=== PATIENT | male | born 1980 ===

== ENCOUNTER 2018-01-12 07:27 | Emergency (ER) | payer MEDICAID, OTHER ==
[2018-01-12 07:54] VITALS: BMI 29.6
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
--- NOTE | 2018-01-12 09:59 | RAD ---
Date of service: 01/12/2018 PROCEDURE: CHEST RADIOGRAPH, 1 VIEW HISTORY: chest pain COMPARISON: None available. FINDINGS: LUNGS: Clear. PLEURA: No pneumothorax or pleural fluid seen. CARDIOVASCULAR: No aortic atherosclerotic calcification present. Normal. OSSEOUS STRUCTURES: No significant abnormalities. VISUALIZED UPPER ABDOMEN: Normal. OTHER FINDINGS: None. IMPRESSION: No active disease.
[2018-01-12 11:19] VITALS: BP 123/78; PULSE 82; RESP 18; TEMP 98; O2SAT 97
== END 2018-01-12 11:19 | disposition home or self-care (01) ==
LOC: ED 07:27
DX: J06.9 Acute upper respiratory infection, unspecified (principal); F17.210 Nicotine dependence, cigarettes, uncomplicated
CPT/HCPCS: 71045; 96372; 99283; J1885